=== PATIENT | female | born 1970 | race Hispanic/Latino ===

== ENCOUNTER 2020-05-17 23:32 | Emergency (ER) | payer OTHER, SELFPAY ==
[2020-05-18] MEDS ORDERED: NA CHLORIDE 0.9% 1,000 ML ONE (01:38)
[2020-05-18 02:06] LABS: Absolute Lymphocytes (CBC) 1.8 K/uL (0.7-4.9); Basophils % 0.4 % (0-1.3); Hematocrit 37.9 % (36.0-45.0); Lymphocytes % 25.3 % (15.3-44.8); MPV 9.3 fL (7.6-11.3); RBC Red Blood Cell Count 4.11 M/uL (3.86-4.86)
[2020-05-18 02:08] LABS: Protime INR 0.95
[2020-05-18 02:33] LABS: Urine Blood 2+ (Negative); Urine Glucose Negative (Negative); Urine Protein Negative (Negative); Urine pH 8.5 (5.0-7.0)
[2020-05-18 02:35] LABS: ALT/SGPT 23 U/L (12-78); AST/SGOT 11 U/L (15-37); Albumin 3.8 g/dL (3.4-5.0); Alkaline Phosphatase 72 U/L (45-117); BUN Blood Urea Nitrogen 6 mg/dL (7-18); Bicarbonate 29 mmol/L (21-32); Bilirubin Direct 0.2 mg/dL (0-0.2); Bilirubin Total 0.6 mg/dL (0.2-1.0); Glucose Level 127 mg/dL (74-106); Magnesium 2.3 mg/dL (1.8-2.4); NT PRO-BNP 127 pg/mL (<125); Potassium 3.6 mmol/L (3.5-5.1); Protein, Total 7.6 g/dL (6.4-8.2); Sodium Level 140 mmol/L (136-145); Troponin (Emerg Dept Use Only) < 0.02 ng/mL (0.0-0.045)
--- NOTE | 2020-05-18 02:54 | EDPHYS ---
Physician Documentation [facility] Name: Imelda Hendrix Age: 49 yrs Sex: Female : 1970 Arrival Date: 05/17/2020 Time: 23:34 Bed 16 Private MD: SENIA Physician Elias Garcia HPI: 05/18 01:09 This 49 yrs old Female presents to ER via Ambulatory with complaints of jonathan Shortness Of Breath, Dizziness. 01:09 The patient has shortness of breath with light activity. Onset: The symptoms/episode jonathan began/occurred 2 day(s) ago. Duration: The symptoms are intermittent, with no pattern. The patient's shortness of breath has no apparent modifying factors. Associated signs and symptoms: The patient has no apparent associated signs or symptoms. Severity of symptoms: At their worst the symptoms were mild in the emergency department the symptoms are unchanged. The patient has not experienced similar symptoms in the past. 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 - Social history:: Smoking status: Patient denies any tobacco usage or history of. - Family history:: not pertinent. ROS: 01:09 Constitutional: Negative for fever, chills, and weight loss, Eyes: Negative for injury, jonathan pain, redness, and discharge, ENT: Negative for injury, pain, and discharge, Neck: Negative for injury, pain, and swelling, Respiratory: Negative for shortness of breath, cough, wheezing, and pleuritic chest pain, Abdomen/GI: Negative for abdominal pain, nausea, vomiting, diarrhea, and constipation, Back: Negative for injury and pain, : Negative for injury, bleeding, discharge, and swelling, MS/Extremity: Negative for injury and deformity, Skin: Negative for injury, rash, and discoloration, Neuro: Negative for headache, weakness, numbness, tingling, and seizure, Psych: Negative for depression, anxiety, suicide ideation, homicidal ideation, and hallucinations, Allergy/Immunology: Negative for hives, rash, and allergies, Endocrine: Negative for neck swelling, polydipsia, polyuria, polyphagia, and marked weight changes, Hematologic/Lymphatic: Negative for swollen nodes, abnormal bleeding, and unusual bruising. : Cardiovascular: Positive for chest pain, with movement. Exam: Constitutional: This is a well developed, well nourished patient who is awake, alert, jonathan and in no acute distress. Head/Face: Normocephalic, atraumatic. Eyes: Pupils equal round and reactive to light, extra-ocular motions intact. Lids and lashes normal. Conjunctiva and sclera are non-icteric and not injected. Cornea within normal limits. Periorbital areas with no swelling, redness, or edema. ENT: Nares patent. No nasal discharge, no septal abnormalities noted. Tympanic membranes are normal and external auditory canals are clear. Oropharynx with no redness, swelling, or masses, exudates, or evidence of obstruction, uvula midline. Mucous membranes moist. Neck: Trachea midline, no thyromegaly or masses palpated, and no cervical lymphadenopathy. Supple, full range of motion without nuchal rigidity, or vertebral point tenderness. No Meningismus. Chest/axilla: Normal chest wall appearance and motion. Nontender with no deformity. No lesions are appreciated. Cardiovascular: Regular rate and rhythm with a normal S1 and S2. No gallops, murmurs, or rubs. Normal PMI, no JVD. No pulse deficits. Respiratory: Lungs have equal breath sounds bilaterally, clear to auscultation and percussion. No rales, rhonchi or wheezes noted. No increased work of breathing, no retractions or nasal flaring. Abdomen/GI: Soft, non-tender, with normal bowel sounds. No distension or tympany. No guarding or rebound. No evidence of tenderness throughout. Back: No spinal tenderness. No costovertebral tenderness. Full range of motion. Skin: Warm, dry with normal turgor. Normal color with no rashes, no lesions, and no evidence of cellulitis. MS/ Extremity: Pulses equal, no cyanosis. Neurovascular intact. Full, normal range of motion. Neuro: Awake and alert, GCS 15, oriented to person, place, time, and situation. Cranial nerves II-XII grossly intact. Motor strength 5/5 in all extremities. Sensory grossly intact. Cerebellar exam normal. Normal gait. Psych: Awake, alert, with orientation to person, place and time. Behavior, mood, and affect are within normal limits. 01:09 Musculoskeletal/extremity: ROM: no acute changes, intact in all extremities, Circulation is intact in all extremities. Pulses: are normal with no appreciated deficits, Sensation intact. Compartment Syndrome exam of affected extremity: is normal. DVT Exam: No signs of deep vein thrombosis. no pain, no swelling, no tenderness, negative Homans' sign noted on exam, no appreciated bluish discoloration, no erythema, no increased warmth. 01:38 ECG was reviewed by the Attending Physician. jonathan Vital Signs: 00:00 BP 148 / 76; Pulse 69; Resp 16 S; Temp 98.2(O); Pulse Ox 100% on R/A; Weight 63.5 kg bb (R); Height 5 ft. 0 in. (152.40 cm) (R); Pain 8/10; 00:59 BP 143 / 86; Pulse 65; Resp 18; Pulse Ox 100% ; Pain 3/10; rr5 02:00 BP 117 / 79; Pulse 68; Resp 18; Temp 98; Pulse Ox 99% ; Pain 3/10; cr4 03:00 BP 112 / 73; Pulse 54; Resp 16; Temp 98.6; Pulse Ox 95% ; Pain 0/10; cr4 00:00 Body Mass Index 27.34 (63.50 kg, 152.40 cm) bb MDM: 01:02 Patient medically screened. jonathan 01:11 Differential diagnosis: Anxiety Reaction Myocardial Infarction pneumonia, pulmonary jonathan edema, Pulmonary Embolism reactive airway disease, Unstable Angina. Antibiotic administration: Not indicated. The patient's Wells Deep Vein Thrombosis Score was calculated as follows: Total Score: 0-2 Pts- Low Risk. The patient's pulmonary embolism risk score was calculated as follows: Total Score: 3-6 points. This patient was found to be at moderate risk for a pulmonary embolism by using the Well's assessment criteria. Immunization status:. Data reviewed: vital signs, nurses notes, lab test result(s), EKG, radiologic studies, CT scan, plain films. Data interpreted: quality assurance monitor chassis: rate is 65 beats/min, rhythm is regular. Test interpretation: by ED physician or midlevel provider: ECG, plain radiologic studies. Counseling: I had a detailed discussion with the patient and/or guardian regarding: the historical points, exam findings, and any diagnostic results supporting the discharge/admit diagnosis, lab results, radiology results, the need for outpatient follow up. 05/18 01:09 Order name: Basic Metabolic Panel [facility] 05/18 01:09 Order name: CBC with Diff [facility] 05/18 01:09 Order name: LFT's 05/18 01:09 Order name: Magnesium [facility] 05/18 01:09 Order name: NT PRO-BNP [facility] 05/18 01:09 Order name: PT-INR [facility] 05/18 01:09 Order name: Troponin (emerg Dept Use Only); Complete Time: 02:51 [facility] 05/18 01:09 Order name: D-Dimer; Complete Time: 02:51 [facility] 05/18 01:10 Order name: Basic Metabolic Panel; Complete Time: 02:51 EDMS 05/18 01:10 Order name: CBC with Automated Diff; Complete Time: 02:51 EDMS 05/18 01:10 Order name: Liver (Hepatic) Function; Complete Time: 02:51 EDMS 05/18 01:10 Order name: Magnesium; Complete Time: 02:51 EDMS 05/18 01:10 Order name: NT PRO-BNP; Complete Time: 02:51 EDMS 05/18 01:09 Order name: XRAY Chest (1 view) [facility] 05/18 01:09 Order name: EKG; Complete Time: 01:10 [facility] 05/18 01:09 Order name: Cardiac monitoring; Complete Time: 02:32 [facility] 05/18 01:09 Order name: EKG - Nurse/Tech; Complete Time: 02:32 [facility] 05/18 01:09 Order name: IV Saline Lock; Complete Time: 02:32 [facility] 05/18 01:09 Order name: Labs collected and sent; Complete Time: 02:33 [facility] 05/18 01:09 Order name: O2 Per Protocol; Complete Time: 02:35 [facility] 05/18 01:10 Order name: Protime (+INR); Complete Time: 02:51 EDMS 05/18 02:32 Order name: Urine Dipstick-Ancillary; Complete Time: 02:51 EDMS 05/18 02:37 Order name: Urine --Ancillary (enter results); Complete Time: 02:51 mw2 05/18 02:55 Order name: Urine Culture [facility] 05/18 02:56 Order name: Urine Culture [facility] 05/18 01:09 Order name: O2 Sat Monitoring; Complete Time: 02:35 [facility] 05/18 01:09 Order name: Urine Dipstick-Ancillary (obtain specimen); Complete Time: 02:33 [facility] 05/18 01:09 Order name: Urine Test (obtain specimen); Complete Time: 02:33 [facility] EC:38 Rate is 65 beats/min. Rhythm is regular. QRS [place] is Normal. MT interval is normal. QRS jonathan interval is normal. QT interval is normal. No Q waves. T waves are Normal. No ST changes noted. Clinical impression: NSR w/ Non-specific ST/T Changes and No evidence of ischemia. Interpreted by me. Reviewed by me. Administered Medications: 01:30 Drug: NS 0.9% 500 ml Route: IV; Rate: bolus; Site: left antecubital; cr4 02:00 Follow up: Response: No adverse reaction; IV Status: Completed infusion; IV Intake: cr4 500ml 02:00 Drug: NS 0.9% 1000 ml Route: IV; Rate: 125 ml/hr; Site: left antecubital; cr4 03:17 Drug: Rocephin - (cefTRIAXone) 1 grams Route: IVPB; Infused Over: 30 mins; Site: left cr4 antecubital; 03:40 Follow up: Response: No adverse reaction; IV Status: Completed infusion; IV Intake: 40dtkg0 03:17 Drug: Cipro (ciprofloxacin) 500 mg Route: PO; cr4 03:48 Follow up: Response: No adverse reaction cr4 Disposition: 05/18/20 02:53 Discharged to Home. Impression: Dyspnea, Dizziness and giddiness, Urinary tract infection, site not specified. - Condition is Stable. - Discharge Instructions: Dizziness, Dysuria, Shortness of Breath, Urinary Tract Infection, Adult, Shortness of Breath, [id number], Urinary Tract Infection, Adult, [id number]-[id number], Aspirin and Your Heart, Dizziness, Dnpl-tr-Huzi. - Prescriptions for Toprol XL 25 mg Oral Tablet - take 1 tablet by ORAL route once daily; 20 tablet. Cipro 250 mg Oral Tablet - take 2 tablets by ORAL route every 12 hours; 14 tablet. - Medication Reconciliation Form, Thank You Letter, Antibiotic Education, Prescription Opioid Use form. - Follow up: Private Physician; When: 2 - 3 days; Reason: Recheck today's complaints, Continuance of care, Re-evaluation by your physician. Follow up: Nikhil Molina; When: 2 - 3 days; Reason: Recheck today's complaints, Continuance of care, Re-evaluation by your physician. - Problem is new. - Symptoms have improved. Signatures: Dispatcher [employer] [facility] Elias Garcia MD MD cha Ballard, Brenda RN RN bb Nannette Sanders RN RN cr4 Corrections: (The following items were deleted from the chart) 01:47 01:10 CORONAVIRUS+LAB.BRZ ordered. [facility] 03:47 02:53 05/18/2020 02:53 Discharged to Home. Impression: Dyspnea; Dizziness and cr4 giddiness; Urinary tract infection, site not specified. Condition is Stable. Discharge Instructions: Dizziness, Shortness of Breath, Shortness of Breath, Pdsg-lc-Ryto, Aspirin and Your Heart, Dizziness, Rxmg-zf-[id number]. Prescriptions for Toprol XL 25 mg Oral Tablet - take 1 tablet by ORAL route once daily; 20 tablet. and Forms are Medication Reconciliation Form, Thank You Letter, Antibiotic Education, Prescription Opioid Use. Follow up: Private Physician; When: 2 - 3 days; Reason: Recheck today's complaints, Continuance of care, Re-evaluation by your physician. Follow up: Nikhil Molina; When: 2 - 3 days; Reason: Recheck today's complaints, Continuance of care, Re-evaluation by your physician. Problem is new. Symptoms have improved. jonathan
--- NOTE | 2020-05-18 02:54 | ER ---
Nurse's Notes [facility] Name: Imelda Hendrix Age: 49 yrs Sex: Female : 1970 Arrival Date: 05/17/2020 Time: 23:34 Bed 16 Private MD: Diagnosis: Dyspnea;Dizziness and giddiness;Urinary tract infection, site not specified Presentation: 05/18 00:00 Chief complaint: Patient states: she has been feeling short of breath with her heart bb racing since Thursday she also has epigastric pain, loss of appetite and vomited x 1 on Thursday. Coronavirus screen: difficulty breathing, fatigue, Client presents with at least one sign or symptom that may indicate coronavirus-19. Standard/surgical mask placed on the client. Ebola Screen: No symptoms or risks identified at this time. Initial Sepsis Screen: Does the patient meet any 2 criteria? No. Patient's initial sepsis screen is negative. Does the patient have a suspected source of infection? No. Patient's initial sepsis screen is negative. Risk Assessment: Do you want to hurt yourself or someone else? Patient reports no desire to harm self or others. Onset of symptoms was May 12, 2020. 00:00 Method Of Arrival: Ambulatory bb 00:00 Acuity: EBONY 3 bb Triage Assessment: 00:03 General: Appears in no apparent distress. Behavior is calm, cooperative. Pain: bb Complains of pain in abdomen Pain currently is 8 out of 10 on a pain scale. Neuro: Level of Consciousness is awake, alert, obeys commands, Oriented to person, place, time, situation. Respiratory: Reports shortness of breath Airway is patent Respiratory effort is even, unlabored, Respiratory pattern is regular, Onset: The symptoms/episode began/occurred 05/12/20, the patient has mild shortness of breath. Derm: Skin is pink, warm \T\ dry. Musculoskeletal: Circulation, motion, and sensation intact. 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 - Social history:: Smoking status: Patient denies any tobacco usage or history of. - Family history:: not pertinent. Screenin:47 Abuse screen: Denies threats or abuse. Nutritional screening: No deficits noted. cr4 Tuberculosis screening: No symptoms or risk factors identified. Fall Risk None identified. Assessment: 00:57 General: Appears comfortable, well groomed, Behavior is calm, cooperative. Neuro: Level rr5 of Consciousness is awake, alert, obeys commands, Oriented to person, place, time, House Superintendent are equal bilaterally Weakness Gait is steady, Speech is normal, Reports weakness Denies numbness headache. Cardiovascular: Denies chest pain, lightheadedness, syncope, Heart tones S1 S2 Rhythm is regular. Respiratory: Reports shortness of breath Airway is patent Respiratory effort is even, unlabored, Respiratory pattern is regular, Breath sounds are clear. GI: Reports nausea. : Denies burning with urination, inability to void. EENT: Denies. EENT: No deficits noted. Derm: No deficits noted. Musculoskeletal: No deficits noted. 01:00 GI: Abdomen is non-distended, Bowel sounds present X 4 quads. Abdomen is tender to rr5 palpation in epigastric area. 02:00 Reassessment: No changes from previously documented assessment. Patient and/or family cr4 updated on plan of care and expected duration. Pain level reassessed. Patient is alert, oriented x 3, equal unlabored respirations, skin warm/dry/pink. Vital Signs: 00:00 BP 148 / 76; Pulse 69; Resp 16 S; Temp 98.2(O); Pulse Ox 100% on R/A; Weight 63.5 kg bb (R); Height 5 ft. 0 in. (152.40 cm) (R); Pain 8/10; 00:59 BP 143 / 86; Pulse 65; Resp 18; Pulse Ox 100% ; Pain 3/10; rr5 02:00 BP 117 / 79; Pulse 68; Resp 18; Temp 98; Pulse Ox 99% ; Pain 3/10; cr4 03:00 BP 112 / 73; Pulse 54; Resp 16; Temp 98.6; Pulse Ox 95% ; Pain 0/10; cr4 00:00 Body Mass Index 27.34 (63.50 kg, 152.40 cm) ED Course: 05/17 23:34 Patient arrived in ED. cl3 05/18 00:02 Triage completed. bb 00:03 Arm band placed on Patient placed in waiting room, Patient notified of wait time. bb Family accompanied patient. 00:57 Michael Pryor, JAQUAN is Primary Nurse. rr5 01:02 Elias Garcia MD is Attending Physician. jonathan 01:30 surveillance system monitor on. Pulse ox on. NIBP on. cr4 01:30 Inserted saline lock: 20 gauge in left antecubital area, using aseptic technique. cr4 02:32 Basic Metabolic Panel Sent. cr4 02:32 CBC with Diff Sent. cr4 02:32 LFT's Sent. cr4 02:32 Magnesium Sent. cr4 02:32 NT PRO-BNP Sent. cr4 02:32 PT-INR Sent. cr4 02:37 Patient has correct armband on for positive identification. Bed in low position. Side cr4 rails up X2. 02:53 Nikhil Molina MD is Referral Physician. jonathan 03:46 No provider procedures requiring assistance completed. intact, bleeding controlled, No cr4 redness/swelling at site. 04:02 XRAY Chest (1 view) In Process Unspecified. EDMS Administered Medications: 01:30 Drug: NS 0.9% 500 ml Route: IV; Rate: bolus; Site: left antecubital; cr4 02:00 Follow up: Response: No adverse reaction; IV Status: Completed infusion; IV Intake: cr4 500ml 02:00 Drug: NS 0.9% 1000 ml Route: IV; Rate: 125 ml/hr; Site: left antecubital; cr4 03:17 Drug: Rocephin - (cefTRIAXone) 1 grams Route: IVPB; Infused Over: 30 mins; Site: left cr4 antecubital; 03:40 Follow up: Response: No adverse reaction; IV Status: Completed infusion; IV Intake: [id number] 03:17 Drug: Cipro (ciprofloxacin) 500 mg Route: PO; cr4 03:48 Follow up: Response: No adverse reaction cr4 Intake: 02:00 IV: 500ml; Total: 500ml. cr4 03:40 IV: 10ml; Total: 510ml. cr4 Outcome: 02:53 Discharge ordered by . jonathan 03:46 Discharged to home ambulatory. cr4 03:46 Condition: good 03:46 Discharge instructions given to patient, Instructed on discharge instructions, follow up and referral plans. medication usage, Demonstrated understanding of instructions, follow-up care, medications, Prescriptions given X 2. 03:47 Patient left the ED. cr4 Addendum: 05/21/2020 10:34 Addendum: Culture Results: Positive urine culture. No further action required. Bacteria i w sensitive to prescribed antibiotic. Signatures: Dispatcher [employer] [facility] Elias Garcia MD MD cha Ballard, Brenda, RN RN Opal Ruggiero RN RN iw Ruiz, Claudia, RN RN cr4 Michael Pryor RN RN rr5 Nixon Valentine cl3
[2020-05-18] MEDS ORDERED: CEFTRIAXONE/SWI 1gm 1 GM/10 ML SYR ONE (03:22)
[2020-05-18] MEDS ORDERED: CIPROFLOXACIN HCL 500 MG TAB ONE (03:22)
--- NOTE | 2020-05-18 09:32 | RAD REPORT ---
EXAM DESCRIPTION: RAD - Chest Single View - 05/18/2020 4:02 am CLINICAL HISTORY: DYSPNEA COMPARISON: Portable April 2017 TECHNIQUE: AP portable chest image was obtained 05/18/2020 4:02 am . FINDINGS: Lungs are clear. Heart and vasculature are normal. No measurable pleural effusion and no p neumothorax. No acute bony abnormality seen. No acute aortic findings suspected. IMPRESSION: No acute cardiopulmonary process. No significant change from comparison study.
[2020-05-18 23:20] VITALS: BP 112/73; TEMP 98.6; O2SAT 95
== END 2020-05-18 03:47 | disposition home or self-care (01) ==
LOC: ER 23:32
DX: N39.0 Urinary tract infection, site not specified (principal); R42 Dizziness and giddiness; I10 Essential (primary) hypertension
CPT/HCPCS: 96365; 93005; 87088; 85025; 87086; 80048; 36415; 83735; 81025; 85610; 85379; 80076; 87077; 87186; 81003; 84484; 83880; 71045; 99284; J0696; J7030